=== PATIENT | male | born 1955 | race Caucasian/White ===

== ENCOUNTER → 2022-09-17 07:52 | Outpatient (BNVA) | payer MEDICARE, SELFPAY | PROVIDERS: Family Provider Nurse Practitioner Family; PCP Nurse Practitioner Family; Referring Provider Nurse Practitioner Family; Visit Provider Specialist | DX: M17.0 Bilateral primary osteoarthritis of knee (principal) | CPT/HCPCS: 73560; 73565; 99214 ==

== ENCOUNTER 2022-10-14 13:57 | Outpatient (CLI) | payer MEDICARE, SELFPAY ==
--- NOTE | 2022-10-14 14:30 | MR_ITS ---
WS: [id number] MRI LEFT KNEE NONCONTRAST TECHNIQUE: Axial PD, coronal PD fat sat, coronal PD, sagittal PD, and sagittal PD fat-sat images obta ined. CLINICAL INFORMATION: positive mc murrays sign FINDINGS: Distal quadriceps and patella tendons are intact. Hypertrophic patella. 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 Normal medial and lateral patellar retinaculum. Normal medial and lateral collateral ligaments. Normal popliteal fossa. Tiny suprapatellar effusion. Moderate to a dvanced degenerative narrowing medial joint compartment. Hypertrophic changes along the joint line. Chronic thinning of the medial meniscus. Complex tear of the posterior horn medial meniscus with blunting. Peripheral extrusion of the medial meniscus. Mild c hronic thinning of the lateral meniscus. MR/MR knee LT wo con* [id number] IMPRESSION: 1. Normal ACL and PCL. 2. Moderate to advanced joint space narrowing medial joint compartment with gr russell 3-4 chondromalacia. 3. Complex tear of the posterior horn medial meniscus with blunting. Periphera l extrusion of the medial meniscus. 4. Moderate to advanced chondromalacia patella. Small suprapatellar effusion. 5. LCL and MCL appear intact. Outbridge grading: grade IV: full-thickness cartilage loss with underlying bone reactive changes
== END 2022-10-14 13:58 | disposition home or self-care (01) ==
PROVIDERS: Family Provider Nurse Practitioner Family; PCP Nurse Practitioner Family; Visit Provider Specialist
DX: S83.232A Complex tear of medial meniscus, current injury, left knee, initial encounter (principal); X58.XXXA Exposure to other specified factors, initial encounter; M22.42 Chondromalacia patellae, left knee; M25.462 Effusion, left knee; M17.12 Unilateral primary osteoarthritis, left knee
CPT/HCPCS: 73721

== ENCOUNTER → 2022-10-29 09:06 | Outpatient (BNVA) | payer MEDICARE, OTHER, SELFPAY | PROVIDERS: Family Provider Nurse Practitioner Family; PCP Nurse Practitioner Family; Visit Provider Specialist | DX: M17.12 Unilateral primary osteoarthritis, left knee (principal) | CPT/HCPCS: 20610; 99213; J7318 ==

== ENCOUNTER → 2023-01-16 10:30 | Outpatient (BNVA) | payer MEDICARE, OTHER, SELFPAY | PROVIDERS: Family Provider Nurse Practitioner Family; PCP Registered Nurse; Visit Provider Registered Nurse | DX: R79.89 Other specified abnormal findings of blood chemistry (principal) | CPT/HCPCS: 80053; 84402; 84403; 85025 ==

== ENCOUNTER → 2023-03-13 11:38 | Outpatient (BNVA) | payer MEDICARE, OTHER, SELFPAY | PROVIDERS: Family Provider Nurse Practitioner Family; PCP Registered Nurse; Visit Provider Registered Nurse | DX: R79.89 Other specified abnormal findings of blood chemistry (principal); Z12.5 Encounter for screening for malignant neoplasm of prostate | CPT/HCPCS: 84402; 84403; G0103 ==

== ENCOUNTER 2023-04-22 06:55 | Outpatient (CLI) | payer MEDICARE, OTHER, SELFPAY ==
--- NOTE | 2023-04-22 07:45 | CT_ITS ---
WS: [id number] LDCT LUNG CANCER SCREENING HISTORY: Z00.00 - Encounter for general adult medical examination ... TECHNIQUE: Axial imaging performed from the apices to 1 cm below the costophrenic angles. Coronal and sagittal reformats are submitted with axial MIP series. All CT scans at [facility] use at least one of these dose optimization techniques: automated exposure control; mA and/or kV adjustment per patient size (includes targeted exams where dose is matched to clinical indication); or iterativ e reconstruction. DLP: 82.51 mGy.cm DIvol: Mean CTDIvol: 1.90 (mGy) COMPARISON: None available. Diagnostic quality: Satisfactory Lungs: No pulmonary mass, pneumonia or nodules. No endobronchial lesions. Heart: Normal size heart with no pericardial effusion.. Other findings: Very mild atherosclerosis aorta. Normal sized pulmonary artery and aorta. Mild scatte red coronary artery calcifications. No adenopathy. IMPRESSION: CT/CT lung screening [id number] LUNG-RADS: 1-Negative FOLLOW UP: 12 Month: Continue annual screening with LDCT OTHER FINDINGS (S MODIFIER): None.
== END 2023-04-22 06:56 | disposition home or self-care (01) ==
PROVIDERS: PCP Registered Nurse; Visit Provider Registered Nurse
DX: Z12.2 Encounter for screening for malignant neoplasm of respiratory organs (principal); Z00.00 Encounter for general adult medical examination without abnormal findings
CPT/HCPCS: 71271

== ENCOUNTER → 2024-06-24 11:54 | Outpatient (BNVA) | payer MEDICARE, OTHER, SELFPAY | PROVIDERS: PCP Registered Nurse; Visit Provider Registered Nurse | DX: R79.89 Other specified abnormal findings of blood chemistry (principal) | CPT/HCPCS: 80053; 80061; 84402; 84403; 85025 ==

== ENCOUNTER → 2024-07-28 11:18 | Outpatient (BNVA) | payer MEDICARE, OTHER, SELFPAY | PROVIDERS: PCP Registered Nurse; Visit Provider Registered Nurse | DX: N40.1 Benign prostatic hyperplasia with lower urinary tract symptoms (principal); R79.89 Other specified abnormal findings of blood chemistry | CPT/HCPCS: 84153 ==

== ENCOUNTER → 2025-02-23 10:33 | Outpatient (BNVA) | payer MEDICARE, OTHER, SELFPAY | PROVIDERS: PCP Registered Nurse; Visit Provider Registered Nurse | DX: E78.5 Hyperlipidemia, unspecified (principal); I10 Essential (primary) hypertension; R79.89 Other specified abnormal findings of blood chemistry; Z13.6 Encounter for screening for cardiovascular disorders; E11.9 Type 2 diabetes mellitus without complications | CPT/HCPCS: 80053; 80061; 83036; 85025 ==

== ENCOUNTER 2025-03-09 13:04 | Outpatient (CLI) | payer MEDICARE, SELFPAY ==
--- NOTE | 2025-03-09 13:30 | USCV_ITS ---
David Silvestre Age: 69 Gender: M : 1955 Exam Date: 03/09/2025 13:24 Ordering Phys: Britney Lyn ANIMAL TAXONOMIST Technologist: RIO [place] [facility] [place]: [place] Risk Factors: Previous Vascular Surgery: Right Brachial BP: / Left Brachial BP: / Right Left Velocity (cm/s) Spectral Plaque Velocity (cm/s) Spectral Plaque Syst/Diast Broadening Syst/Diast Broadening 127.60/21.70 Prox CCA 124.00/ 23.50 111.20/19.90 Mid CCA 132.00/ 24.20 83.80/ 19.90 Distal CCA 99.70 / 19.80 39.70/ 10.80 Prox ICA 44.10 / 7.10 39.30/ 11.30 Mid ICA 50.40 / 16.00 58.70/ 18.30 Distal ICA 71.30 / 23.40 101.50 ECA 97.40 0.50 ICA/CCA 0.40 Antegrade Vertebral Antegrade 48.50/ 15.40 cm/s 31.10/ 10.30 cm/s Tri Subclavian Tri 79.70 160.4 0 CONCLUSIONS Right ICA stenosis <50%. Mild atheromatous plaque right carotid bulb/ICA. Left ICA stenosis <50%. Mild atheromatous plaque left carotid bulb/ICA. Intimal thickening in the common carotid arteries and internal carotid arteries bilaterally. Normal antegrade Doppler flow noted in the right vertebral artery. Normal antegrade Doppler flow noted in the left vertebral artery. Teo Grace MD (Electronically Signed) Final Date: 09 March 2025 14:22 S
--- NOTE | 2025-03-09 15:15 | CT_ITS ---
WS: [id number] LDCT LUNG CANCER SCREENING HISTORY: Z87.891 - Personal history of nicotine dependence TECHNIQUE: Axial imaging performed from the apices to 1 cm below the costophrenic angles. Coronal and sagittal reformats are submitted with axial MIP series. All CT scans at [facility] use at least one of these dose optimization techniques: automated exposure control; mA and/or kV adjustment per patient size (includes targeted exams where dose is matched to clinical indication); or iterative reconstruction. DLP: 90.49 mGy.cm DIvol: Mean CTDIvol: 2.10 (mGy) COMPARISON: 04/22/2023 Diagnostic quality: Satisfactory Lungs: Decreased lung volumes due to poor inspiratory effort. Benign calcified granuloma LEFT upper lobe. Micronodule posterior LEFT upper lobe. No suspicious masses or pulmonary nodules. No pneumonia. Heart: Normal size heart with no pericardial effusion.. Other findings: Mild coronary artery calcifications. Mild atherosclerotic disease thoracic aorta. No enlarged mediastinal or hilar lymph nodes. LEFT hilar calcified lymph nodes. No adrenal mass. Gallbladder is contracted. CT/CT lung screening [id number] IMPRESSION: LUNG-RADS: 2-Benign Appearance or Behavior FOLLOW UP: 12 Month: Continue annual screening with LDCT OTHER FINDINGS (S MODIFIER): None.
== END 2025-03-09 13:05 | disposition home or self-care (01) ==
LOC: RAD 13:06
PROVIDERS: PCP Registered Nurse; Visit Provider Registered Nurse
DX: Z12.2 Encounter for screening for malignant neoplasm of respiratory organs (principal); Z87.891 Personal history of nicotine dependence; Z13.6 Encounter for screening for cardiovascular disorders; R91.8 Other nonspecific abnormal finding of lung field; J84.10 Pulmonary fibrosis, unspecified; I25.10 Atherosclerotic heart disease of native coronary artery without angina pectoris; I70.0 Atherosclerosis of aorta; I89.8 Other specified noninfective disorders of lymphatic vessels and lymph nodes; R93.3 Abnormal findings on diagnostic imaging of other parts of digestive tract; I65.23 Occlusion and stenosis of bilateral carotid arteries; Z12.11 Encounter for screening for malignant neoplasm of colon
CPT/HCPCS: 71271; 93880; 99024; 99204

== ENCOUNTER 2025-03-21 07:05 | Day surgery (SDC) | payer MEDICARE, SELFPAY ==
[2025-03-21 07:19] VITALS: BP 130/75; PULSE 51; RESP 18; TEMP 36.2; O2SAT 100
[2025-03-21 07:20] VITALS: BMI 29.5
--- NOTE | 2025-03-21 08:49 | W.PM.OPSUD ---
Surgery/Procedure H&P Update DATE OF PROCEDURE: March 21, 2025 DATE H&P PERFORMED: 03/09/25 H&P UPDATE INFORMATION: I have reviewed H&P completed within last 30 days, I have examined patient prior to procedure and No changes to prior documentation PLANNED PROCEDURE: Operation Date: 03/21/25 08:30 Proposed Procedures p Colonoscopy 84218 G0105 Z12.11(Not Applicable) - Mayo Betancourt MD
--- NOTE | 2025-03-21 08:49 | ANES.PREANE2 ---
Pre-Anesthetic Assessment Height/Weight: Height 1.8 m Weight 96.162 kg Temp Pulse Resp BP Pulse Ox O2 Del Method 97.1 F L 51 L 18 130/75 100 Room Air 03/21/25 07:19 03/21/25 07:19 03/21/25 07:19 03/21/25 07:19 03/21/25 07:19 03/21/25 07:19 Preop Diagnosis: need for screen Operation Date: 03/21/25 08:30 Proposed Procedures p Colonoscopy 56386 G0105 Z12.11(Not Applicable) - Mayo Betancourt MD Familial anesthetic complications: none Was Beta Bebeto taken within 24 hours: N/A (lisinopril - LD 03/20) Was Clonidine taken within 24 hours: N/A Last intake: Intake Last Liquid Date 03/20/25 Last Liquid Time 22:00 Last Solid Date 03/19/25 Last Solid Time 18:30 Social No alcohol and No tobacco Exam alert, oriented x 3, clear to auscultation bilaterally and regular rate & rhythm Airway Submandibular: within normal limits Cervical ROM: within normal limits Mallampati: Class III Comments: Comments: intact Pulmonary None reported CV/HEM Hypertension None reported Hepatic None reported GI None reported Metabolic None reported Musc/skel None reported Neuropsych None reported Anesthetic Plan ASA status: 3 Anesthesia: MAC Risk of > 500 ml blood loss (7ml/kg in children): No Medications/Allergies Home Medications ?Medication ?Instructions ?Recorded ?Confirmed ?Last Taken ?Type fluticasone propionate 50 1 spray intranasal DAILY 08/28/22 03/20/25 03/20/25 History mcg/actuation nasal spray,suspension safety needles 18 gauge x 1 1/2 #12 ea 07/28/24 03/09/25 Unknown Rx (Easy Touch FlipLock Needle) syringe with needle, safety 3 mL #12 ea 07/28/24 03/09/25 Unknown Rx 22 gauge x 1 1/2 testosterone cypionate 200 mg/mL 150 mg (0.75 mL) SUBCUT .monthly 11/17/24 03/20/25 03/19/25 Rx intramuscular oil 90 days #3 mL (Depo-Testosterone) budesonide-formoterol HFA 160 2 inh inhalation BID 30 days #10.2 02/23/25 03/20/25 03/20/25 Rx mcg-4.5 mcg/actuation aerosol grams inhaler (Symbicort) lisinopril 20 1 tab PO DAILY 03/20/25 03/20/25 03/20/25 History mg-hydrochlorothiazide 25 mg tablet tamsulosin 0.4 mg capsule 0.4 mg PO DAILY 03/20/25 03/20/25 03/20/25 History Allergies Allergy/AdvReac Type Severity Reaction Status Date / Time No Known Allergies Allergy Verified 03/21/25 07:18 Current Medications Generic Name Dose Route Start Last Admin Trade Name Freq PRN Reason Stop Dose Admin Sodium Chloride 1,000 mls @ 15 mls/hr 03/21/25 07:14 03/21/25 07:27 Sodium Chloride 0.9% IV 03/22/25 07:13 15 mls/hr .Q24H PRN Administration COLONOSCOPY FLUIDS PFSH Anesthesia Medical History BPH (benign prostatic hyperplasia) Hypertension Surgical History (Updated 03/09/25 @ 14:[address]) History of appendectomy Family History Grandfather Heart attack Hypertension Mother Hypertension Father Hypertension Grandmother Hypertension Denies family history of Diabetes Hyperlipidemia Chronic kidney disease (CKD) Lung disease Stroke Social History Smoking and tobacco/nicotine status: never used tobacco/nicotine Alcohol intake: never Substance/Drug Use: never Adopted: No Caregiver/support person: No Lives independently: No Household members: spouse Marital status: service: No Current occupational status: employed Sexually active: Yes Do you think of yourself as: Straight/Heterosexual Current gender identity: Male
--- NOTE | 2025-03-21 09:01 | PC.NURSE ---
cecum time [id number]
[2025-03-21 09:21] VITALS: BP 125/86; PULSE 52; RESP 16; TEMP 36.2; O2SAT 92
--- NOTE | 2025-03-21 09:23 | ANES.PREANE2 ---
Pre-Anesthetic Assessment Height/Weight: Height 1.8 m Weight 96.162 kg Temp Pulse Resp BP Pulse Ox O2 Del Method 97.1 F L 51 L 18 130/75 100 Room Air 03/21/25 07:19 03/21/25 07:19 03/21/25 07:19 03/21/25 07:19 03/21/25 07:19 03/21/25 07:19 Preop Diagnosis: need for screen Operation Date: 03/21/25 08:30 Proposed Procedures p Colonoscopy 11112 G0105 Z12.11(Not Applicable) - Mayo Betancourt MD Familial anesthetic complications: none Last intake: Intake Last Liquid Date 03/20/25 Last Liquid Time 22:00 Last Solid Date 03/19/25 Last Solid Time 18:30 Medications/Allergies Home Medications ?Medication ?Instructions ?Recorded ?Confirmed ?Last Taken ?Type fluticasone propionate 50 1 spray intranasal DAILY 08/28/22 03/20/25 03/20/25 History mcg/actuation nasal spray,suspension safety needles 18 gauge x 1 1/2 #12 ea 07/28/24 03/09/25 Unknown Rx (Easy Touch FlipLock Needle) syringe with needle, safety 3 mL #12 ea 07/28/24 03/09/25 Unknown Rx 22 gauge x 1 1/2 testosterone cypionate 200 mg/mL 150 mg (0.75 mL) SUBCUT .monthly 11/17/24 03/20/25 03/19/25 Rx intramuscular oil 90 days #3 mL (Depo-Testosterone) budesonide-formoterol HFA 160 2 inh inhalation BID 30 days #10.2 02/23/25 03/20/25 03/20/25 Rx mcg-4.5 mcg/actuation aerosol grams inhaler (Symbicort) lisinopril 20 1 tab PO DAILY 03/20/25 03/20/25 03/20/25 History mg-hydrochlorothiazide 25 mg tablet tamsulosin 0.4 mg capsule 0.4 mg PO DAILY 03/20/25 03/20/25 03/20/25 History Allergies Allergy/AdvReac Type Severity Reaction Status Date / Time No Known Allergies Allergy Verified 03/21/25 07:18 Current Medications Generic Name Dose Route Start Last Admin Trade Name Freq PRN Reason Stop Dose Admin Sodium Chloride 1,000 mls @ 15 mls/hr 03/21/25 07:14 03/21/25 07:27 Sodium Chloride 0.9% IV 03/22/25 07:13 15 mls/hr .Q24H PRN Administration COLONOSCOPY FLUIDS PFSH Anesthesia Medical History BPH (benign prostatic hyperplasia) Hypertension Surgical History (Updated 03/09/25 @ 14:[address]) History of appendectomy Family History Grandfather Heart attack Hypertension Mother Hypertension Father Hypertension Grandmother Hypertension Denies family history of Diabetes Hyperlipidemia Chronic kidney disease (CKD) Lung disease Stroke Social History Smoking and tobacco/nicotine status: never used tobacco/nicotine Alcohol intake: never Substance/Drug Use: never Adopted: No Caregiver/support person: No Lives independently: No Household members: spouse Marital status: service: No Current occupational status: employed Sexually active: Yes Do you think of yourself as: Straight/Heterosexual Current gender identity: Male
--- NOTE | 2025-03-21 09:58 | ANE.PACU2 ---
Inpatient post-anesthesia follow up: Airway intact: Yes Vital signs: Temperature 97.2 F Pulse Rate 52 Respiratory Rate 16 Blood Pressure 125/86 Pulse Oximetry 92 Oxygen Delivery Me thod Room Air Oxygen Flow Rate Fraction of Inspir ed Oxygen Hydration adequate: Yes Nausea and vomiting: No Pain level: 1 Mental status: Baseline
== END 2025-03-21 09:58 | disposition home or self-care (01) ==
PROVIDERS: PCP Registered Nurse; Visit Provider Student in an Organized Health Care Education/Training Program
PROC: 0DJD8ZZ Inspection of Lower Intestinal Tract, Via Natural or Artificial Opening Endoscopic (ICD-10-PCS; CPT 45378; principal; 2025-03-21 08:30)
DX: Z12.11 Encounter for screening for malignant neoplasm of colon (principal); K64.1 Second degree hemorrhoids; D12.8 Benign neoplasm of rectum; I10 Essential (primary) hypertension
CPT/HCPCS: 45385; 88305; J2704; J7030

== ENCOUNTER → 2025-04-06 10:46 | Outpatient (BNVA) | payer MEDICARE, SELFPAY | PROVIDERS: PCP Registered Nurse; Visit Provider Student in an Organized Health Care Education/Training Program | DX: Z09 Encounter for follow-up examination after completed treatment for conditions other than malignant neoplasm (principal) | CPT/HCPCS: 99213 ==